=== PATIENT | male | born 1980 | race Caucasian/White ===

== ENCOUNTER 2020-03-23 11:35 | Emergency (ER) | payer OTHER ==
[2020-03-23 11:46] VITALS: BMI 28.1
[2020-03-23] MEDS ORDERED: SODIUM CHLORIDE 1,000 ML IV STA (13:07)
[2020-03-23 13:56] LABS: BASO % 0.7 % (0-2.0); EOS % 1.3 % (0-4.5); HEMATOCRIT 45.4 % (35.4-49); HEMOGLOBIN 15.4 GM/dL (11.7-16.9); LYMPH % 24.5 % (8-40); MCH 29.5 pg (25.7-33.7); MCHC 33.9 g/dl (32.0-35.9); MEAN CELL VOLUME 86.8 fl (80-96); MEAN PLT VOLUME 7.3 fl (7.5-11.1); MONO % 4.9 % (3.8-10.2); NEUT % 68.6 % (42.8-82.8); PLATELET COUNT 354 K/MM3 (134-434); RBC 5.23 M/mm3 (4.00-5.60); RDW 14.5 % (11.9-15.9); WHITE BLOOD COUNT 10.1 K/mm3 (4.0-10.0)
[2020-03-23 15:06] LABS: CHLORIDE 104 mmol/L (98-107); POTASSIUM 4.3 mmol/L (3.5-5.1); SODIUM 138 mmol/L (136-145)
[2020-03-23 15:07] LABS: CALCIUM 9.2 mg/dL (8.5-10.1)
[2020-03-23 15:08] LABS: ALBUMIN 4.4 g/dl (3.4-5.0); ANION GAP 7 MMOL/L (8-16); BLOOD UREA NITROGEN 14.3 mg/dL (7-18); CO2 27 mmol/L (21-32); GLUCOSE,RANDOM 85 mg/dL (74-106)
[2020-03-23 15:11] LABS: CREATININE 0.8 mg/dL (0.55-1.3); SGOT/AST 18 U/L (15-37); SGPT/ALT 41 U/L (13-61)
[2020-03-23 15:13] LABS: BILIRUBIN,TOTAL 0.2 mg/dL (0.2-1); TOT PROT 8.3 g/dl (6.4-8.2)
[2020-03-23 15:14] LABS: ALK PHOS 73 U/L (45-117)
[2020-03-23 15:33] LABS: URINE APPEARANCE CLEAR; URINE BILIRUBIN NEGATIVE (NEGATIVE); URINE COLOR YELLOW; URINE GLUCOSE (UA) NEGATIVE (NEGATIVE); URINE KETONE NEGATIVE (NEGATIVE); URINE LEUK ESTERASE NEGATIVE (NEGATIVE); URINE NITRITE NEGATIVE (NEGATIVE); URINE PROTEIN NEGATIVE (NEGATIVE); URINE UROBILINOGEN 0.2 mg/dL (0.2-1.0)
[2020-03-23 15:50] LABS: METHADONE, UR NEGATIVE ng/ml (CUTOFF=300); OPIATES, URI NEGATIVE ng/ml (CUTOFF=300); URINE AMPHETAMINES NEGATIVE ng/ml (CUTOFF=500); URINE BARBITURATES NEGATIVE ng/ml (CUTOFF=200); URINE BENZODIAZEPINES NEGATIVE ng/ml (CUTOFF=200)
[2020-03-23 15:56] LABS: COCAINE, UR POSITIVE ng/ml (CUTOFF=300); PHENCYCLIDINE,URINE POSITIVE ng/ml (CUTOFF=25)
[2020-03-23 16:50] VITALS: BP 122/74; PULSE 82; TEMP 98.1
== END 2020-03-23 16:50 | disposition home or self-care (01) ==
LOC: JER 11:35
DX: F19.10 Other psychoactive substance abuse, uncomplicated (principal); R41.82 Altered mental status, unspecified
CPT/HCPCS: 36415; 71046-TC-FY; 80053; 80307; 81003; 84443; 85025; 93005; 93010; 99285-25

== ENCOUNTER 2020-06-01 06:58 | Emergency (ER) | payer OTHER ==
[2020-06-01] MEDS ORDERED: IBUPROFEN 600 MG TABLET (FP) PO ONE (07:43)
[2020-06-01 07:49] VITALS: BP 149/67; PULSE 82; TEMP 98.1; BMI 27.8
[2020-06-01] MEDS ORDERED: ACETAMINOPHEN 1000 MG/100 ML VIAL (NON FORMULARY) IVPB ONE (07:50)
[2020-06-01] MEDS ORDERED: ACETAMINOPHEN INJECTION 100 ML IVPB ONE (07:53)
[2020-06-01] MEDS ORDERED: SODIUM CHLORIDE 1,000 ML IV SCH (08:00)
[2020-06-01 08:25] LABS: BASO % 0.6 % (0-2.0); EOS % 0.8 % (0-4.5); HEMATOCRIT 41.3 % (35.4-49); HEMOGLOBIN 14.5 GM/dL (11.7-16.9); LYMPH % 12.9 % (8-40); MCH 30.5 pg (25.7-33.7); MEAN CELL VOLUME 87.2 fl (80-96); MEAN PLT VOLUME 7.3 fl (7.5-11.1); MONO % 5.6 % (3.8-10.2); NEUT % 80.1 % (42.8-82.8); PLATELET COUNT 349 K/MM3 (134-434); RBC 4.74 M/mm3 (4.00-5.60); RDW 14.2 % (11.9-15.9); WHITE BLOOD COUNT 16.4 K/mm3 (4.0-10.0)
[2020-06-01 08:32] LABS: INR 1.15 (0.83-1.09); PROTHROMBIN TIME (PATIENT) 13.8 SEC (9.7-13.0)
[2020-06-01 08:35] LABS: ACTIVATED PTT 35.2 SECONDS (25.2-36.5)
[2020-06-01 08:48] LABS: BLOOD UREA NITROGEN 10.2 mg/dL (7-18); CALCIUM 9.1 mg/dL (8.5-10.1)
[2020-06-01 08:49] LABS: ALBUMIN 3.6 g/dl (3.4-5.0)
[2020-06-01 08:51] LABS: CREATININE 0.8 mg/dL (0.55-1.3)
[2020-06-01 08:53] LABS: BILIRUBIN,TOTAL 0.4 mg/dL (0.2-1); TOT PROT 7.4 g/dl (6.4-8.2)
== END 2020-06-01 10:53 | disposition home or self-care (01) ==
LOC: JER 06:58
PROC: 3E033NZ Introduction of Analgesics, Hypnotics, Sedatives into Peripheral Vein, Percutaneous Approach (ICD-10-PCS; principal; 2020-06-01)
DX: M25.561 Pain in right knee (principal); M25.522 Pain in left elbow; M25.512 Pain in left shoulder
CPT/HCPCS: 36415; 70450-TC; 72125-TC; 73030-TC-LT-FY; 73060-TC-LT-FY; 73070-TC-LT-FY; 73090-TC-LT-FY; 73560-TC-RT-FY; 73590-TC-RT-FY; 73610-TC-RT-FY; 73630-TC-LT; 73630-TC-RT-FY; 80053; 85025; 85610; 85730; 86850; 86900; 86901; 99285-25; J0131